=== PATIENT | male | born 1985 | race Caucasian/White ===

== ENCOUNTER 2017-07-12 03:16 | Emergency (ER) | payer BC, OTHER ==
[2017-07-12] MEDS ORDERED: Ketorolac 30 MG/ML SDV ONE (03:40)
[2017-07-12] MEDS ORDERED: Meperidine PF 25 MG/ML Syringe ONE (03:40)
[2017-07-12] MEDS ORDERED: Ibuprofen 400 MG Tab PO ONE (03:45)
[2017-07-12] MEDS ORDERED: Ibuprofen 400 MG Tab ONE (04:20)
--- NOTE | 2017-07-12 04:29 | EDM.PDOC ---
ED HPI GENERAL MEDICAL PROBLEM - General Chief Complaint: Eye Problems Stated Complaint: wellders burn to eyes Time Seen by Provider: 07/12/17 04:00 Source of Information: Reports: Patient - History of Present Illness INITIAL COMMENTS - FREE TEXT/NARRATIVE: 31-year-old male presents emergency room early this morning with complaints of bilateral eye pain and irritation. 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 He has no complaints when he went home upon waking up he felt that both eyes were quite irritated painful and felt like sandpaper was in both eyes. He took out his contacts and tried some Visine but this was not helpful. He called his boss and they suggested that he be evaluated emergency room. He has no other complaints or concerns. Is not taking anything other than the Visine. He denies any loss of vision, blurred vision, double vision. He states the pain is fairly tolerable and denies needing any pain meds which were offered for him. Onset: Today Onset Date: 07/12/17 Duration: Hour(s): Location: Reports: Other (eyes) Quality: Reports: Burning Severity: Moderate Improves with: Reports: None Worsens with: Reports: None Context: Reports: Other (welding) Associated Symptoms: Reports: No Other Symptoms - Related Data Allergies Allergy/AdvReac Type Severity Reaction Status Date / Time No Known Drug Allergies Allergy Cannot Verified 07/12/17 03:18 Remember Home Meds: Home Meds Cyclobenzaprine [Flexeril] 10 mg PO TID PRN 07/12/17 [History] Past Medical History HEENT History: Reports: Impaired Vision Musculoskeletal History: Reports: Back Pain, Chronic Social & Family History - Tobacco Use Smoking Status *Q: Former Smoker Years of Tobacco use: 7 Used Tobacco, but Quit: Yes Month/Year Tobacco Last Used: Second Hand Smoke Exposure: Yes - Caffeine Use Caffeine Use: Reports: Coffee, Soda - Recreational Drug Use Recreational Drug Use: No ED ROS GENERAL - Review of Systems Review Of Systems: See Below Constitutional: Reports: No Symptoms HEENT: Reports: Contact Lenses, Eye Pain, Glasses. Denies: Eye Discharge Respiratory: Reports: No Symptoms Cardiovascular: Reports: No Symptoms Endocrine: Reports: No Symptoms Musculoskeletal: Reports: No Symptoms Skin: Denies: Burn(s) Neurological: Denies: Headache ED EXAM GENERAL W FULL EYE - Physical Exam Exam: See Below Exam Limited By: No Limitations General Appearance: Alert, WD/WN, No Apparent Distress Eye Exam: Bilateral Eye: Corneal Abrasion (negative bilateral), EOMI, PERRL, Vision Changes (20/20) Visual Acuity (R) 20/: 20 Visual Acuity (L) 20/: 20 Eyelids: Bilateral: Normal Appearance Conjunctiva & Sclera: Bilateral: Normal Appearance Cornea Exam: Bilateral: Examined with Flourescein (negative for ulcer) Extraocular Movements: Bilateral: Intact Pupils: Normal Accommodation Pupillary Size: Bilateral: 2 mm Pupillary Reaction: Bilateral: Brisk Nose: Normal Inspection Throat/Mouth: Normal Voice Head: Atraumatic Neck: Normal Inspection, Supple Respiratory/Chest: No Respiratory Distress ED EYE w/ Add Procedure - Eye Procedure Antibiotic Oinment/Drps Admin: Both Eyes Course - Vital Signs Last Recorded V/S: Last Vital Signs Temp 95.9 F 07/12/17 03:22 Pulse 98 07/12/17 03:22 Resp 20 07/12/17 03:22 BP 125/70 07/12/17 03:22 Pulse Ox 97 07/12/17 03:22 - Orders/Labs/Meds Meds: Medications Discontinued Medications Generic Name Dose Route Start Last Admin Trade Name Shanice PRN Reason Stop Dose Admin Ibuprofen Confirm 07/12/17 04:20 Motrin Administered 07/12/17 04:21 Dose 800 mg .ROUTE .STK-MED ONE Ketorolac Tromethamine Confirm 07/12/17 03:40 Toradol Administered 07/12/17 03:41 Dose 30 mg .ROUTE .STK-MED ONE Meperidine HCl Confirm 07/12/17 03:40 Demerol Administered 07/12/17 03:41 Dose 25 mg .ROUTE .STK-MED ONE - Re-Assessments/Exams Free Text/Narrative Re-Assessment/Exam: 07/12/17 04:33 Fluorescein exam is negative for renal abrasion or ulcers. Patient reports with the administration of fluorescein stain that this helped substantially for the sandpaper feeling he feels his eyes. 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 Steroid eye drops. 2. Ibuprofen 800mg QID with food. 3. Avoid bright light/sun exposure. 4. Wear sunglasses if outside at all times. 5. Follow-up with your executive coach on Friday. - Assessment/Plan Assessment:: Exposure to welding light Plan: 1. Steroid/antibiotic eye drops. 2. Ibuprofen 800mg QID with food. 3. Avoid bright light/sun exposure. 4. Wear sunglasses if outside at all times. 5. Follow-up with your executive coach on Friday.
[2017-07-12] MEDS ORDERED: Benoxinate/Fluorescein 0.4-0.25% Ophth Soln 5 ML Bottle EYEBOTH SCH (04:30)
[2017-07-12] MEDS ORDERED: DEXAMETHASONE EYEBOTH SCH (04:45)
[2017-07-12] MEDS ORDERED: TOBRAMYCIN EYEBOTH SCH (04:45)
[2017-07-12] MEDS ORDERED: Dexamethasone/Tobramycin 0.1-0.3% Ophth Susp 2.5 ML Bottle EYEBOTH ONE (04:45)
== END 2017-07-12 04:45 | disposition home or self-care (01) ==
LOC: KA.ED 03:16
DX: H57.13 Ocular pain, bilateral (principal); W89.0XXA Exposure to welding light (arc), initial encounter
CPT/HCPCS: 99283; A9270